=== PATIENT | male | born 1960 | race Caucasian/White ===

== ENCOUNTER 2020-07-28 14:53 | Observation (INO) ==
[2020-07-28] MEDS ORDERED: IOPAMIDOL 100 ML BOTTLE IV ONE (14:54)
[2020-07-28] MEDS ORDERED: IPRATROPIUM/ALBUTEROL 3 ML AMPUL.NEB NEB ONE (15:12)
[2020-07-28] MEDS ORDERED: predniSONE 20 MG TABLET PO ONE (15:12)
--- NOTE | 2020-07-28 16:06 | XRay Report ---
CLINICAL INFORMATION: dyspnea COMPARISON: 07/25/2020 FINDINGS: The heart is moderately enlarged - increased in size from previous exam. Mediastinum is normal. Pulmonary vessels are moderately distended with mild interstitial edema throughout both lungs which is increased. Moderate bibasilar infiltrates and small effusions have developed. IMPRESSION: Moderate CHF - worsening. Moderate bibasilar infiltrates and small effusions - new Interpreted and Authenticated by: Lex Beaver 07/28/20
[2020-07-28] MEDS ORDERED: FUROSEMIDE 20 MG/2 ML VIAL IV ONE ×2 (16:29→19:20)
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
[2020-07-28 16:36] LABS: Basophils # (Auto) 0.07 K/mcL (0.00-0.20); Basophils % (Auto) 1.4 % (0.0-2.0); Eosinophils # (Auto) 0.49 K/mcL (0.00-0.70); Eosinophils % (Auto) 9.7 % (0.0-7.0); Hematocrit 41.6 % (41.0-55.0); Hemoglobin 13.3 g/dL (13.5-16.5); Lymphocytes # (Auto) 1.41 K/mcL (1.50-4.80); Mean Cell Volume 88.5 fL (80.0-100.0); Mean Platelet Volume 10.1 fL (7.4-10.4); Monocytes # (Auto) 0.66 K/mcL (0.10-0.90); Monocytes % (Auto) 13.1 % (1.0-12.0); Neutrophils % (Auto) 47.8 % (38.0-78.0); Platelet Count 187 K/mcL (140-440); Red Cell Distribution Width 15.9 % (11.5-14.5)
[2020-07-28 17:03] LABS: ALT/SGPT 20 U/L (<40); AST/SGOT 24 U/L (<40); Albumin 3.6 gm/dL (3.2-5.2); Albumin/Globulin Ratio 0.9 (1.0-2.3); Alkaline Phosphatase 100 U/L (39-117); Bilirubin,Total 0.5 mg/dL (0.1-1.0); Blood Urea Nitrogen 15 mg/dL (6-20); Calcium 8.1 mg/dL (8.6-10.4); Carbon Dioxide 22 mmol/L (22-30); Chloride 104 mmol/L (96-108); Globulin 3.8 gm/dL (2.2-3.7); Glomerular Filtration Rate 92; Glucose 95 mg/dL (70-105)
[2020-07-28] MEDS ORDERED: hydrALAZINE 20 MG/ML VIAL IV PRN (20:25)
[2020-07-28] MEDS ORDERED: ONDANSETRON 4 MG/2 ML VIAL IV PRN (20:25)
[2020-07-28] MEDS ORDERED: ONDANSETRON 4 MG ODT TABLET SL PRN (20:25)
[2020-07-28] MEDS ORDERED: ACETAMINOPHEN 650 MG/65 ML BAG IV PRN (20:25)
[2020-07-28] MEDS ORDERED: POTASSIUM CHLORIDE 20 MEQ PACKET PO PRN (20:25)
[2020-07-28] MEDS ORDERED: POTASSIUM CHLORIDE 40 MEQ in DEXTROSE 5% IN WATER 500 ML IV PRN (20:25)
[2020-07-28] MEDS ORDERED: MAGNESIUM SULFATE 2 GM/50 ML BAG IV PRN (20:25)
[2020-07-28] MEDS ORDERED: POLYETHYLENE GLYCOL 3350 17 GM PACKET PO PRN (20:25)
[2020-07-28] MEDS ORDERED: BISACODYL 10 MG SUPP.RECT PR PRN (20:25)
[2020-07-28] MEDS ORDERED: MELATONIN 3 MG TABLET PO PRN (20:25)
[2020-07-28] MEDS ORDERED: LEVOFLOXACIN 750 MG/150 ML BAG IV SCH (20:30)
--- NOTE | 2020-07-28 20:33 | Internal Med History&Physical ---
HPI History of Present Illness Patient information: Note initiated : 07/28/20 at 8:27 pm Service Date, if different from initiated Date: [] Patient: Héctor Perera a 59 y/o M admitted on for SHORTNESS OF BREATH. Chief Complaint: Shortness of breath History of present illness: Mr. Perera is a 59 year old M with a history of RA/COPD/CAD/[place] 2011/ who presents with worsening shortness of breath over last 1 day duration along with associated orthopnea/effort intolerance and gradually restricting his activities of daily living. No associated fever or sick contacts. Denies productive sputum but endorses to minimal activity resulting in increasingly labored breathing. He denies weight gain or precipitating events but feels the symptoms may have started after episode of upper respiratory infection back in May. Denies weight loss/night sweats/joint pain/rash/arthralgia/headache photophobia or chest pain. Initial work-up in the ER was consistent with bilateral effusion/CHF. Patient was started on diuretics with resultant improvement in shortness of breath. He also received steroids/bronchodilators. Hospital service was consulted. At the time of my evaluation patient is alert and oriented. He is able to answer most the questions and answers in near full sentences. He remains tachycardic and mid 120. Patient has underlying with arthritis which is well controlled on medical management. Follows up with Dr. 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) Osteoarthritis (Acute) Encounter for long-term (current) use of high-risk medication (Acute) Abnormal immunological finding in serum (Acute) Polyarthralgia (Acute) Sinusitis, acute (Chronic) Screening PSA (prostate specific antigen) (Chronic) Acute bronchitis (Acute) Rheumatoid arthritis (Acute) 3-vessel CAD (Chronic) Scoliosis, unspecified (Chronic) Tinea unguium (Chronic) Encounter for therapeutic drug level monitoring (Chronic) Multiple myeloma not having achieved remission (Chronic) Lytic bone lesions on xray (Chronic) Emphysema, unspecified (Chronic) Arthritis, rheumatoid (Acute) Abscess, dental (Chronic) Tobacco abuse counseling (Chronic) Medical History 3-vessel CAD (Chronic) Abnormal immunological finding in serum (Acute) Abscess, dental (Chronic) Arthritis, rheumatoid (Acute) Elevated SGOT (AST) (Acute) Emphysema, unspecified (Chronic) Encounter for long-term (current) use of high-risk medication (Acute) Encounter for therapeutic drug level monitoring (Chronic) 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) Lytic bone lesions on xray (Chronic) Multiple myeloma not having achieved remission (Chronic) Osteoarthritis (Acute) Polyarthralgia (Acute) Respiratory distress (Acute) Rheumatoid arthritis (Acute) CCP+ Scoliosis, unspecified (Chronic) Screening PSA (prostate specific antigen) (Chronic) Sinusitis, acute (Chronic) Tinea unguium (Chronic) Tobacco abuse counseling (Chronic) Surgical History History of intravascular stent placement (Chronic) 3 stents 2011 Family History Other No pertinent family history Social History marital status: single smoking status: Current every day smoker MEDS/ALLERGIES Home Medications and Allergies Home Medications Medication Instructions Recorded Confirmed Type acetaminophen 300 mg-codeine 30 mg 1 tab PO Q4H PRN #120 tab 02/04/20 07/28/20 Rx tablet meloxicam 15 mg tablet 7.5 mg PO BID #15 tab 05/05/20 07/28/20 Rx etanercept 50 mg/mL (1 mL) 50 mg SUB-Q QWEEK #3.92 ml 05/26/20 07/28/20 Rx subcutaneous pen injector leflunomide 10 mg tablet See Rx Instructions .ROUTE 05/26/20 07/28/20 Rx .COMPLEX #30 tab albuterol sulfate 90 mcg/actuation 2 puff INHALATION Q6H PRN #18 g 07/22/20 07/28/20 Rx aerosol inhaler azithromycin 250 mg tablet See Rx Instructions PO .COMPLEX #6 07/25/20 07/28/20 Rx tab budesonide-formoterol HFA 160 2 puff INHALATION BID #10.2 g 07/25/20 07/28/20 Rx mcg-4.5 mcg/actuation aerosol inhaler methotrexate sodium 2.5 mg PO QDAY 07/28/20 07/28/20 History Allergies Allergy/AdvReac Type Severity Reaction Status Date / Time No Known Drug Allergies Allergy Verified 07/25/20 14:36 EXAM Constitutional Vitals: Temp Pulse Resp BP Pulse Ox 98.3 F 121 H 25 H 153/102 89 L 07/28/20 14:54 07/28/20 20:20 07/28/20 20:20 07/28/20 20:20 07/28/20 20:20 Anxious Head normocephalic Oral cavity moist No ear nose discharge Eye movement symmetrical Neck supple no lymphadenopathy S1-S2 tachycardia, diminished heart sounds Labored breathing/absent breath sounds bilateral bases Nondistended nontender abdomen Lower extremity no cyanosis clubbing or joint swelling Skin no suspicious lesion Psych anxious but no hallucination Neuro normal higher function DATA Data Completed and Pending Labs: Labs from last 24 hours 07/28/20 07/28/20 07/28/20 15:28 15:28 15:28 WBC RBC Hgb Hct MCV MCH MCHC RDW Plt Count MPV Neut % (Auto) Lymph % (Auto) [place] % (Auto) Eos % (Auto) Baso % (Auto) Lymph # (Auto) [place] # (Auto) Eos # (Auto) Baso # (Auto) Absolute Neutrophils D-Dimer 2.16 H Sodium Potassium Chloride Carbon Dioxide Anion Gap BUN Creatinine GFR Calculation Glucose Calcium Total Bilirubin AST ALT Alkaline Phosphatase Troponin T < 0.01 NT-Pro-B Natriuret Pep 2331.0 H Total Protein Albumin Globulin Albumin/Globulin Ratio 07/28/20 07/28/20 15:28 15:28 WBC 5.0 RBC 4.70 Hgb 13.3 L Hct 41.6 MCV 88.5 MCH 28.3 MCHC 32.0 RDW 15.9 H Plt Count 187 MPV 10.1 Neut % (Auto) 47.8 Lymph % (Auto) 28.0 [place] % (Auto) 13.1 H Eos % (Auto) 9.7 H Baso % (Auto) 1.4 Lymph # (Auto) 1.41 L [place] # (Auto) 0.66 Eos # (Auto) 0.49 Baso # (Auto) 0.07 Absolute Neutrophils 2.41 D-Dimer Sodium 136 Potassium 3.9 Chloride 104 Carbon Dioxide 22 Anion Gap 10.0 BUN 15 Creatinine 0.9 GFR Calculation 92 Glucose 95 Calcium 8.1 L Total Bilirubin 0.5 AST 24 ALT 20 Alkaline Phosphatase 100 Troponin T NT-Pro-B Natriuret Pep Total Protein 7.4 Albumin 3.6 Globulin 3.8 H Albumin/Globulin Ratio 0.9 L A/P Narrative A/P Narrative: * Acute decompensated heart failure. Positive systolic. Start aggressive diuresis. Echocardiogram. Optimize CHF management based on echo finding. * Bilateral pleural effusion secondary to CHF. Will likely resolve with aggressive diuresis. However if evidence of leukocytosis/pneumonia will undergo thoracentesis. * History of RA on methotrexate/leflunomide/Enbrel/meloxicam * History of COPD on Symbicort/albuterol * Prophylaxis Heparin Plan * Observation telemetry admit * Aggressive diuresis/echocardiogram/optimize CHF management based on echo findings * Thoracentesis if indicated * PT OT nutrition support Time Spent With Patient Time: Total time spent is greater than 50% in coordination of care (as documented) at patient's floor/unit and/or counseling patient: QUALITY Stroke Symptom Onset Unknown: No
[2020-07-28] MEDS ORDERED: MELOXICAM 7.5 MG PO SCH (21:00)
[2020-07-28] MEDS ORDERED: BUDESONIDE FORMOTEROL INHALATION SCH (21:00)
[2020-07-28 21:23] LABS: Appearance,Urine CLEAR (Clear); Bilirubin,Urine Negative (Negative); Color,Urine COLORLESS; Culture Indicated,Urine No; Glucose,Urine (UA) Negative (Negative); Ketones,Urine Negative (Negative); Leukocyte Esterase,Urine Negative /ug (Negative); Nitrate,Urine Negative (Negative); Protein,Urine Negative (Negative); Specific Gravity,Urine 1.013 (1.000-1.035); Urine Blood Negative (Negative); Urine RBC < 1 /hpf (0-3); Urine Squamous Epithelial Cell 0 /hpf (0-4); Urine WBC 0 /hpf (0-4); Urobilinogen,Urine Negative
[2020-07-28] MEDS: MELOXICAM 7.5 MG TABLET PO SCH (21:37)
[2020-07-28] MEDS: HEPARIN 5,000 UNIT/ML VIAL SQ SCH (21:37)
[2020-07-28] MEDS: LEVOFLOXACIN 750 MG/150 ML BAG IV SCH (21:37)
[2020-07-28] MEDS: ACETAMINOPHEN 325 MG TABLET PO PRN (21:38)
[2020-07-28] MEDS: SENNOSIDES/DOCUSATE SODIUM 1 TAB TABLET PO SCH (21:40)
[2020-07-28] MEDS: BUDESONIDE 160 MCG INH SCH (21:40)
[2020-07-28] MEDS: FORMOTEROL 4.5 MCG INH SCH (21:40)
[2020-07-28] MEDS: DOCUSATE SODIUM 100 MG CAPSULE PO SCH (21:40)
[2020-07-28] MEDS: 0.9 % SODIUM CHLORIDE 10 ML SYRINGE IV SCH (21:41)
[2020-07-29] MEDS: ACETAMINOPHEN 325 MG TABLET PO PRN (03:12)
--- NOTE | 2020-07-29 05:12 | Cat Scan Report ---
CLINICAL INFORMATION: Pain and elevated d-dimer COMPARISON: 05/13/[address] with contrast TECHNIQUE: ml of Isovue-370 were injected intravenously. Using SmartPrep to maximize pulmonary artery opacification, .625mm helical slices were obtained from the lung apices through the lung bases. Following reconstruction, 2.5 mm sagittal, coronal, and axial reformations were processed. The exam was reviewed at mediastinal, lung, and bone windows. The exam was performed using radiation dose optimization techniques including, but not limited to, automated exposure control, adjustment of the mA and/or kV according to patient size and use of iterative reconstruction technique. FINDINGS: Mediastinal windows show the pulmonary arteries are well-opacified with moderate peripheral congestion compatible with CHF. No evidence of pulmonary embolus. Thoracic aorta is nonopacified but normal in diameter. Multiple moderately enlarged lymph nodes in the lower mediastinum and hilum are unchanged from the comparison CT three months prior. The largest is 20 mm in the AP window. The heart is moderately enlarged. Subendocardial fat in the cardiac apex and distal septum is suggestive of nontransmural myocardial infarction. There appear to be stents in the proximal LAD and possibly the mid LAD. Moderately heavy calcific plaque present in the coronary arteries. Small hiatal hernia noted Pulmonary parenchymal windows show moderate centrilobular and periseptal emphysema featuring chronic bronchitis with elevated lung volumes wall thickening/dilatation of the bronchi. Multiple bullae are seen in the lung apices and the paraseptal regions of the remaining lungs. Mild groundglass airspace disease has developed throughout both lungs likely represent a pulmonary edema. Scattered (9-10) small well-circumscribed solid pulmonary nodules were carefully compared to the CT less than three months prior and are unchanged. There are likely granulomas. Moderate bilateral pleural effusions have developed with subsegmental atelectasis in both posterior dependent lower lobes. Bone windows show no osseous abnormality. Images through the superior abdomen show small hiatal hernia. 3.5 cm simple cyst in the lateral segment left hepatic lobe is unchanged. 1 cm simple cyst in the right hepatic lobe is also stable. Visualized kidneys, adrenal glands, spleen and pancreas are normal. IMPRESSION: 1. No evidence of pulmonary embolus. 2. Moderate CHF. Heart is moderately enlarged and there is subendocardial fat and cardiac apex and distal septum suggesting old nontransmural infarct. 3. Moderate bilateral pleural effusions resulting in compressive subsegmental atelectasis in the adjacent posterior lower lobes 4. Scattered small well-circumscribed pulmonary nodules throughout both lungs are unchanged since the most recent chest CT less than three months prior. They're likely benign granulomas. One year follow-up chest CT without contrast in July 2021 to ensure continued stability. 5. Adenopathy in the lower mediastinum - stable. Adenopathy can occur with chronic or intermittent CHF. It is almost certainly benign reactive adenopathy. 6. Small hiatal hernia - stable Interpreted and Authenticated by: Lex Beaver 07/29/20
[2020-07-29] MEDS: 0.9 % SODIUM CHLORIDE 10 ML SYRINGE IV SCH ×3 (06:11→20:22)
[2020-07-29 06:56] LABS: Basophils # (Auto) 0.02 K/mcL (0.00-0.20); Basophils % (Auto) 0.5 % (0.0-2.0); Eosinophils # (Auto) 0.01 K/mcL (0.00-0.70); Eosinophils % (Auto) 0.2 % (0.0-7.0); Hematocrit 44.4 % (41.0-55.0); Hemoglobin 14.2 g/dL (13.5-16.5); Lymphocytes # (Auto) 0.84 K/mcL (1.50-4.80); Lymphocytes % (Auto) 19.9 % (15.0-49.0); Mean Cell Volume 89.2 fL (80.0-100.0); Mean Platelet Volume 10.4 fL (7.4-10.4); Monocytes # (Auto) 0.45 K/mcL (0.10-0.90); Monocytes % (Auto) 10.6 % (1.0-12.0); Neutrophils % (Auto) 68.8 % (38.0-78.0); Platelet Count 218 K/mcL (140-440); RBC 4.98 M/mcL (4.50-5.90); Red Cell Distribution Width 16.1 % (11.5-14.5); WBC 4.2 K/mcL (4.5-11.0)
[2020-07-29 07:30] LABS: ALT/SGPT 20 U/L (<40); AST/SGOT 23 U/L (<40); Albumin 3.8 gm/dL (3.2-5.2); Albumin/Globulin Ratio 0.9 (1.0-2.3); Alkaline Phosphatase 105 U/L (39-117); Bilirubin,Direct < 0.2 mg/dL (<0.3); Bilirubin,Total 0.5 mg/dL (0.1-1.0); Blood Urea Nitrogen 23 mg/dL (6-20); Calcium 8.5 mg/dL (8.6-10.4); Carbon Dioxide 25 mmol/L (22-30); Chloride 99 mmol/L (96-108); Globulin 4.1 gm/dL (2.2-3.7); Glomerular Filtration Rate 81; Glucose 118 mg/dL (70-105); Lactate Dehydrogenase 206 U/L (135-225); Phosphorous 4.1 mg/dL (2.5-4.5); Triglycerides 61 mg/dL (<150); Uric Acid 5.9 mg/dL (2.5-8.0)
[2020-07-29] MEDS: HEPARIN 5,000 UNIT/ML VIAL SQ SCH ×2 (08:10→20:18)
[2020-07-29] MEDS: FUROSEMIDE 40 MG/4 ML VIAL IV SCH ×2 (08:10→15:48)
[2020-07-29] MEDS: MELOXICAM 7.5 MG TABLET PO SCH ×2 (08:10→20:18)
[2020-07-29] MEDS: MULTIVIT,THER IRON,CA,FA & MIN 1 TABLET PO SCH (08:10)
[2020-07-29] MEDS: DOCUSATE SODIUM 100 MG CAPSULE PO SCH ×2 (08:11→20:22)
[2020-07-29] MEDS ORDERED: METHOTREXATE SODIUM 2.5 MG TABLET PO SCH (09:00)
--- NOTE | 2020-07-29 09:05 | Internal Med Progress Note ---
SUBJECTIVE Subjective Patient information: Note initiated : 07/29/20 at 9:02 am Service Date, if different from initiated Date: [] Patient: Héctor Perera 59 y/o M admitted on 07/28/20 for SHORTNESS OF BREATH. Chief Complaint: [] Interval history: Mr. Perera is a 59 year old M with a history of RA/COPD/CAD/[place] 2011/ who presents with worsening shortness of breath over last 1 day duration along with associated orthopnea/effort intolerance and gradually restricting his activities of daily living. No associated fever or sick contacts. Denies productive sputum but endorses to minimal activity resulting in increasingly labored breathing. He denies weight gain or precipitating events but feels the symptoms may have started after episode of upper respiratory infection back in May. Denies weight loss/night sweats/joint pain/rash/arthralgia/headache photophobia or chest pain. Initial work-up in the ER was consistent with bilateral effusion/CHF. Patient was started on diuretics with resultant improvement in shortness of breath. He also received steroids/bronchodilators. Hospital service was consulted. At the time of my evaluation patient is alert and oriented. He is able to answer most the questions and answers in near full sentences. He remains tachycardic and mid 120. Patient has underlying with arthritis which is well controlled on medical management. Follows up with Dr. Moss 07/29-patient doing a lot better. Diuresing well. Orthopnea and dyspnea much improved. However unable to sleep last night. Await echocardiogram. Net -2500 cc fluid balance. Continue diuresis. Optimize CHF management based on echo finding. Start extended-release metoprolol. Constitutional Vitals: Vital Signs Temp Pulse Resp BP Pulse Ox 98.1 F 109 H 18 141/106 97 07/29/20 08:01 07/29/20 08:01 07/29/20 06:01 07/29/20 08:01 07/29/20 08:01 Period Temp Pulse Resp BP Sys/Brown Pulse Ox Last 24 Hr 97.6 F-98.4 F 57-123 10-28 129-169/81-134 86-97 Intake and Output 07/28/20 07/29/20 07/29/20 21:59 05:59 13:59 Intake Total 150 Output Total 2024 400 200 Balance -2024 -250 -200 Weight 101.559 kg alert oriented Minimally labored breathing No anxiety Nondistended abdomen Intake & Output: Intake & Output 07/28/20 07/29/20 07/29/20 21:59 05:59 13:59 Intake Total 150 Output Total 2024 400 200 Balance -2024250 -200 Weight 101.559 kg Intake: IV 150 Output: Void Amount 2024 400 200 Other: Urine Appearance Clear Clear Urine Color Straw Straw Dark Yellow Urine Odor Normal # Voids 1 OBJ DATA Labs CBC & Chem 7: 07/29/20 05:25 07/29/20 05:25 Labs: Abnormal Lab Results 07/29/20 07/29/20 07/28/20 05:25 05:25 15:28 WBC 4.2 L Hgb RDW 16.1 H [place] % (Auto) Eos % (Auto) Lymph # (Auto) 0.84 L D-Dimer 2.16 H BUN 23 H Glucose 118 H Calcium 8.5 L NT-Pro-B Natriuret Pep Globulin 4.1 H Albumin/Globulin Ratio 0.9 L 07/28/20 07/28/20 07/28/20 15:28 15:28 15:28 WBC Hgb 13.3 L RDW 15.9 H [place] % (Auto) 13.1 H Eos % (Auto) 9.7 H Lymph # (Auto) 1.41 L D-Dimer BUN Glucose Calcium 8.1 L NT-Pro-B Natriuret Pep 2331.0 H Globulin 3.8 H Albumin/Globulin Ratio 0.9 L Meds: Medications Acetaminophen (Tylenol) 650 mg PO Q4-6HP PRN; Protocol PRN Reason: Per Pain Protocol/Fever > 101 Last Admin: 07/29/20 03:12 Dose: 650 mg Documented by: Bisacodyl (Dulcolax) 10 mg NM Q2-3DAYS PRN PRN Reason: Constipation Docusate Sodium (Colace) 100 mg PO BID [facility] Last Admin: 07/29/20 08:11 Dose: Not Given Documented by: Furosemide (Lasix) 40 mg IV BIDD [facility] Last Admin: 07/29/20 08:10 Dose: 40 mg Documented by: Heparin Sodium (Porcine) (Heparin) 5,000 unit SQ Q12 [facility] Last Admin: 07/29/20 08:10 Dose: 5,000 unit Documented by: Hydralazine HCl (Apresoline) 10 mg IV Q4-6HP PRN PRN Reason: Hypertension Potassium Chloride 40 meq/ (Dextrose) 520 mls @ 130 mls/hr IV UD PRN PRN Reason: K+ = or < 3.5 Acetaminophen (Ofirmev) 650 mg in 65 mls @ 130 mls/hr IV Q6HP PRN; Protocol PRN Reason: Per Pain Protocol/Fever > 101 Magnesium Sulfate (Magnesium Sulfate) 2 gm in 50 mls @ 50 mls/hr IV UD PRN PRN Reason: MG = or < 1.7 Levofloxacin (Levaquin) 750 mg in 150 mls @ 100 mls/hr IV DAILY [facility]; Protocol Last Infusion: 07/28/20 23:26 Dose: Infused Documented by: Iron Carb/Multivit/Loving/Folic Acid (Multivitamin W/Minerals) 1 tab PO DAILY [facility] Last Admin: 07/29/20 08:10 Dose: 1 tab Documented by: Melatonin (Melatonin 3mg Tablet) 3 mg PO HSP PRN PRN Reason: Insomnia Last Admin: 07/28/20 21:37 Dose: 3 mg Documented by: Meloxicam (Mobic) 7.5 mg PO BID [facility] Last Admin: 07/29/20 08:10 Dose: 7.5 mg Documented by: Ondansetron HCl (Zofran Odt) 4 mg SL Q4-6HP PRN; Protocol PRN Reason: Nausea And Vomiting Ondansetron HCl (Zofran) 4 mg IV Q4-6HP PRN; Protocol PRN Reason: Nausea And Vomiting Etanercept [Enbrel (Sureclick] 50 Mg Pen) 1 dose SUB-Q Th@0900 [facility] Budesonide 160 Mcg - Formoterol 4.5 Mcg [ Symbicort] Inhaler 2 dose INH BID [facility] Last Admin: 07/28/20 21:40 Dose: 2 dose Documented by: Pneumococcal Polyvalent Vaccine (Pneumovax 23) 0.5 ml IM .ONCE ONE Stop: 07/30/20 10:01 Polyethylene Glycol (Miralax) 17 gm PO DAILYP PRN PRN Reason: Constipation Potassium Chloride (Klor-Con) 40 meq PO DAILYP PRN PRN Reason: K+ < 3.5 Senna/Docusate Sodium (Senna Plus Tablet) 1 tab PO HS [facility] Last Admin: 07/28/20 21:40 Dose: Not Given Documented by: Sodium Chloride (Saline Flush) 10 ml IV Q8 [place] Last Admin: 07/29/20 06:11 Dose: Not Given Documented by: A/P Narrative A/P Narrative: * Acute decompensated heart failure. Likely systolic however await echo findings. Responding well to aggressive diuresis with over 2000 cc net negative fluid balance overnight. Start extended-release beta-jorden and optimize CHF management based on echo finding. * Bilateral pleural effusion secondary to CHF. Repeat imaging in 24 hours. No fever or leukocytosis suggestive of infectious etiology. * History of RA on methotrexate/leflunomide/Enbrel/meloxicam, next dose Biologics on * History of COPD on Symbicort/albuterol * Prophylaxis Heparin Plan * Continue aggressive diuresis * Start extended-release beta-jorden * Await echo findings * Thoracentesis if indicated * PT OT nutrition support * Discharge planning Time Spent With Patient Time: Total time spent is greater than 50% in coordination of care (as documented) at patient's floor/unit and/or counseling patient: QUALITY Stroke Symptom Onset Unknown: No
[2020-07-29] MEDS: BUDESONIDE 160 MCG INH SCH ×2 (09:20→20:18)
[2020-07-29] MEDS: FORMOTEROL 4.5 MCG INH SCH ×2 (09:20→20:18)
[2020-07-29] MEDS: METOPROLOL SUCCINATE 25 MG TAB.XL.24H PO SCH (09:37)
[2020-07-29] MEDS: LEVOFLOXACIN 750 MG/150 ML BAG IV SCH (13:55)
[2020-07-29] MEDS: ACETAMINOPHEN W/CODEINE #3 1 TABLET PO PRN ×3 (14:14→23:47)
[2020-07-29] MEDS: SENNOSIDES/DOCUSATE SODIUM 1 TAB TABLET PO SCH (20:22)
[2020-07-30] MEDS: ACETAMINOPHEN W/CODEINE #3 1 TABLET PO PRN ×3 (04:34→13:50)
[2020-07-30 06:05] LABS: Basophils # (Auto) 0.09 K/mcL (0.00-0.20); Basophils % (Auto) 1.7 % (0.0-2.0); Eosinophils # (Auto) 0.29 K/mcL (0.00-0.70); Eosinophils % (Auto) 5.5 % (0.0-7.0); Hematocrit 43.5 % (41.0-55.0); Hemoglobin 13.9 g/dL (13.5-16.5); Lymphocytes # (Auto) 1.44 K/mcL (1.50-4.80); Lymphocytes % (Auto) 27.2 % (15.0-49.0); Mean Cell Volume 89.5 fL (80.0-100.0); Mean Platelet Volume 9.9 fL (7.4-10.4); Monocytes # (Auto) 0.79 K/mcL (0.10-0.90); Monocytes % (Auto) 14.9 % (1.0-12.0); Neutrophils % (Auto) 50.7 % (38.0-78.0); Platelet Count 215 K/mcL (140-440); RBC 4.86 M/mcL (4.50-5.90); Red Cell Distribution Width 16.2 % (11.5-14.5); WBC 5.3 K/mcL (4.5-11.0)
[2020-07-30] MEDS: 0.9 % SODIUM CHLORIDE 10 ML SYRINGE IV SCH ×2 (06:46→13:49)
[2020-07-30] MEDS: FUROSEMIDE 40 MG/4 ML VIAL IV SCH ×2 (07:15→13:50)
[2020-07-30] MEDS: HEPARIN 5,000 UNIT/ML VIAL SQ SCH (07:16)
[2020-07-30] MEDS: MULTIVIT,THER IRON,CA,FA & MIN 1 TABLET PO SCH (07:16)
[2020-07-30] MEDS: METOPROLOL SUCCINATE 25 MG TAB.XL.24H PO SCH (07:16)
[2020-07-30] MEDS: DOCUSATE SODIUM 100 MG CAPSULE PO SCH (07:16)
[2020-07-30 07:57] LABS: ALT/SGPT 20 U/L (<40); AST/SGOT 28 U/L (<40); Albumin 3.7 gm/dL (3.2-5.2); Albumin/Globulin Ratio 0.9 (1.0-2.3); Alkaline Phosphatase 103 U/L (39-117); Bilirubin,Direct < 0.2 mg/dL (<0.3); Bilirubin,Total 0.6 mg/dL (0.1-1.0); Blood Urea Nitrogen 30 mg/dL (6-20); Calcium 8.5 mg/dL (8.6-10.4); Carbon Dioxide 23 mmol/L (22-30); Chloride 97 mmol/L (96-108); Glomerular Filtration Rate 81; Glucose 95 mg/dL (70-105); Lactate Dehydrogenase 234 U/L (135-225); Triglycerides 125 mg/dL (<150); Uric Acid 7.1 mg/dL (2.5-8.0)
--- NOTE | 2020-07-30 08:56 | XRay Report ---
CLINICAL INFORMATION: CHF COMPARISON: 07/28/2020 FINDINGS: Heart has decreased in size and now only mildly enlarged. Mediastinum is unremarkable. Pulmonary vessels have returned to normal in caliber. Interstitial edema has almost totally resolved. Bibasilar airspace disease also nearly completely resolved with only minimal residual. Small bilateral pleural effusions have decreased IMPRESSION: Near complete interval resolution CHF and bibasilar atelectasis or infiltrate Interpreted and Authenticated by: Lex Beaver 07/30/20
[2020-07-30] MEDS ORDERED: MELOXICAM 7.5 MG TABLET PO SCH (09:00)
[2020-07-30] MEDS: LEVOFLOXACIN 750 MG/150 ML BAG IV SCH (09:30)
[2020-07-30] MEDS: FORMOTEROL 4.5 MCG INH SCH (09:35)
[2020-07-30] MEDS: BUDESONIDE 160 MCG INH SCH (09:35)
[2020-07-30] MEDS ORDERED: PNEUMOCOCCAL 23-VAL P-SAC VAC 0.5 ML SYRINGE IM ONE (10:00)
[2020-07-30] MEDS ORDERED: FLU VACC QS2020-21(6MOS UP)/PF 60 MCG/0.5 ML SYRINGE IM ONE (10:00)
--- NOTE | 2020-07-30 11:19 | Discharge Summary ---
Discharge Provider Provider Patient information: Note initiated : 07/30/20 at 11:13 am Service Date, if different from initiated Date: [] Patient: Héctor Perera 59 y/o M admitted on 07/28/20 for SHORTNESS OF BREATH. Discharge diagnosis * Acute decompensated systolic heart failure. EF 40%. Responding well to aggressive diuresis with over 4000 cc net negative fluid balance overnight. Continue low-dose ADRIAN inhibitor/extended-release beta-jorden/daily diuretics. Interval improvement in CHF noted * Bilateral pleural effusion secondary to CHF. Interval improvement noted. Secondary to CHF * History of RA on methotrexate/leflunomide/Enbrel/meloxicam, follow-up with primary care physician * History of COPD on Symbicort/albuterol Brief hospital course Mr. Perera is a 59 year old M with a history of RA/COPD/CAD/[place] 2011/ who presents with worsening shortness of breath over last 1 day duration along with associated orthopnea/effort intolerance and gradually restricting his activities of daily living. No associated fever or sick contacts. Denies productive sputum but endorses to minimal activity resulting in increasingly labored breathing. He denies weight gain or precipitating events but feels the symptoms may have started after episode of upper respiratory infection back in May. Denies weight loss/night sweats/joint pain/rash/arthralgia/headache photophobia or chest pain. Initial work-up in the ER was consistent with bilateral effusion/CHF. Patient was started on diuretics with resultant improvement in shortness of breath. He also received steroids/bronchodilators. Hospital service was consulted. At the time of my evaluation patient is alert and oriented. He is able to answer most the questions and answers in near full sentences. He remains tachycardic and mid 120. Patient has underlying with arthritis which is well controlled on medical management. Follows up with Dr. Moss 07/29-patient doing a lot better. Diuresing well. Orthopnea and dyspnea much improved. However unable to sleep last night. Await echocardiogram. Net -2500 cc fluid balance. Continue diuresis. Optimize CHF management based on echo finding. Start extended-release metoprolol. 07/30-echocardiogram 40% EF systolic competent. Recommend outpatient cardiology follow-up. Continue ADRIAN inhibitor/beta-jorden at this time along with diuretics. Clinically much improved following net -4000 cc fluid balance. O rthopnea resolved. Now on room air. Tachypnea resolved. Systolics at goal. Requesting discharge. Complaint of overnight back discomfort due to uncomfortable bed and requesting to go home. Advised to follow-up with [place] cardiology and outpatient PCP for continued optimization of heart failure and also evaluation of etiology that may include PCI/further cardiac work-up. Date of admission: 07/28/20 20:43 Discharge date: 07/30/20 Primary care physician: Topher Andrews MD Consults: 07/28/20 Consult to Physician [CONS] Stat Comment: Consulting Provider: Sohail Riley Reason For Exam: Physician to Consult Discharge Meds Discharge Medications Home Medications acetaminophen 300 mg-codeine 30 mg tablet 1 tab PO Q4H PRN #120 tab 02/04/20 [Rx Confirmed 07/28/20 Last Taken 07/28/20] etanercept 50 mg/mL (1 mL) subcutaneous pen injector 50 mg SUB-Q QWEEK #3.92 ml 05/26/20 [Rx Confirmed 07/28/20 Last Taken 07/24/20] leflunomide 10 mg tablet See Rx Instructions .ROUTE .COMPLEX #30 tab 05/26/20 [Rx Confirmed 07/28/20 Last Taken 07/27/20] albuterol sulfate 90 mcg/actuation aerosol inhaler 2 puff INHALATION Q6H PRN #18 g 07/22/20 [Rx Confirmed 07/28/20 Last Taken 07/28/20] budesonide-formoterol HFA 160 mcg-4.5 mcg/actuation aerosol inhaler 2 puff INHALATION BID #10.2 g 07/25/20 [Rx Confirmed 07/28/20 Last Taken 07/27/20] meloxicam 7.5 mg PO QDAY 07/28/20 [History Confirmed 07/28/20 Last Taken 07/27/20] COURSE Hospital Course Hospital course: . Discharge diagnosis: Decompensated systolic heart failure Time Spent with Patient Time attestation: Total time spent providing and/or coordinating discharge services: EXAM Constitutional Vitals: Temp Pulse Resp BP Pulse Ox 97.3 F 40 L 27 H 112/72 94 07/30/20 08:01 07/30/20 09:26 07/30/20 09:26 07/30/20 08:01 07/30/20 09:26 Discharge Data Data Completed and Pending Labs on day of discharge: Labs from last 24 hours 07/30/20 07/30/20 05:13 05:13 WBC 5.3 RBC 4.86 Hgb 13.9 Hct 43.5 MCV 89.5 MCH 28.6 MCHC 32.0 RDW 16.2 H Plt Count 215 MPV 9.9 Neut % (Auto) 50.7 Lymph % (Auto) 27.2 [place] % (Auto) 14.9 H Eos % (Auto) 5.5 Baso % (Auto) 1.7 Lymph # (Auto) 1.44 L [place] # (Auto) 0.79 Eos # (Auto) 0.29 Baso # (Auto) 0.09 Absolute Neutrophils 2.68 Sodium 136 Potassium 4.5 Chloride 97 Carbon Dioxide 23 Anion Gap 16.0 BUN 30 H Creatinine 1.0 GFR Calculation 81 Glucose 95 Uric Acid 7.1 Calcium 8.5 L Phosphorus 4.0 Magnesium 2.3 Total Bilirubin 0.6 Direct Bilirubin < 0.2 GGT 17 AST 28 ALT 20 Alkaline Phosphatase 103 Lactate Dehydrogenase 234 H Total Protein 7.7 Albumin 3.7 Globulin 4.0 H Albumin/Globulin Ratio 0.9 L Triglycerides 125 Discharge Plan Patient/Caregiver Discharge Instructions Activity: increase activity as tolerated Diet: Regular Diet Instructions: Metoprolol (By mouth), Heart Failure (GEN), How to Stop Smoking (GEN), Cigarette Smoking and Your Health (GEN), Using Oxygen at Home (GEN) Activity Restrictions/Additional Instructions: Continue Toprol/metoprolol/Lasix advised Daily weight intake extra Lasix for 24 to 48 hours if weight gain is over 4 pounds above baseline or increasing shortness of breath Follow-up with cardiology and [facility] Follow-up PCP in 1 to 2 weeks A referral has been sent to [facility], they will contact you to schedule an appointment after reviewing your hospital visit. Call if you have any questions. This discharge packet is provided to you to help keep you informed about your care. We want to ensure you get everything you need when you go home. You will also be receiving a call from us in a few days to follow up with you and see how you are doing since your discharge. This gives us a chance to listen to any concerns you maybe experiencing since you were discharged or any additional needs you may have, as well as providing us feedback on your care experience. We strive to always provide excellent care and thank you for your feedback and for choosing [facility]. Prescriptions: No Action acetaminophen-codeine 300-30 mg tablet 1 tab PO Q4H PRN (Reason: pain) Qty: 120 RF: 5 Enbrel SureClick 50 mg/mL (1 mL) pen injector 50 mg SUB-Q QWEEK Qty: 3.92 RF: 2 leflunomide 10 mg tablet See Rx Instructions .ROUTE .COMPLEX Qty: 30 RF: 1 albuterol sulfate [ProAir HFA] 90 mcg/actuation HFA aerosol inhaler 2 puff INHALATION Q6H PRN (Reason: shortness of breath or wheezing) Qty: 18 RF: 0 budesonide-formoterol [Symbicort] 160-4.5 mcg/actuation HFA aerosol inhaler 2 puff INHALATION BID Qty: 10.2 RF: 5 meloxicam 7.5 mg Tablet 7.5 mg PO QDAY RF: 0 Follow Up Plan Follow up with: Topher Andrews MD [Primary Care Provider] - 08/04/20 10:30 am Patient Disposition: Home, Self-Care Prognosis: Fair Rehab Potential: Fair I certify that the patient requires SNF services: No Overall status at discharge: patient is progressing back to baseline Discharge Orders: Discharge Order (Routine); Ordered 07/30/20 Ordered By: Sohail Riley
[2020-07-31] MEDS ORDERED: ETANERCEPT 50 MG SUB-Q SCH (09:00)
== END 2020-07-30 15:50 | disposition home or self-care (01) ==
LOC: ICU 14:53 → ED 14:53 → ICU 20:43
PROVIDERS: ADMIT Internal Medicine; ATTEND Internal Medicine

== ENCOUNTER 2024-08-13 11:15 | Inpatient (IN) ==
[2024-08-13] MEDS ORDERED: IOPAMIDOL 100 ML BOTTLE IV ONE (11:16)
[2024-08-13] MEDS: IPRATROPIUM/ALBUTEROL 3 ML AMPUL.NEB NEB ONE (11:49)
[2024-08-13] MEDS: methylPREDNISolone SOD SUCC 125 MG/2 ML VIAL IV ONE (11:53)
[2024-08-13] MEDS: AZITHROMYCIN 500 MG in 0.9 % SODIUM CHLORIDE 250 ML IV ONE (12:21)
[2024-08-13] MEDS: cefTRIAXone 1 GM VIAL IV ONE (12:21)
[2024-08-13 12:39] LABS: ALT/SGPT 40 U/L (<40); AST/SGOT 73 U/L (<40); Albumin 3.5 gm/dL (3.2-5.2); Albumin/Globulin Ratio 1.3 (1.0-2.3); Alkaline Phosphatase 67 U/L (39-117); Bilirubin,Total 0.6 mg/dL (0.1-1.0); Blood Urea Nitrogen 28 mg/dL (8-23); Calcium 7.9 mg/dL (8.6-10.4); Carbon Dioxide 24 mmol/L (22-30); Chloride 100 mmol/L (96-108); Globulin 2.6 gm/dL (2.2-3.7); Glomerular Filtration Rate 89; Glucose 174 mg/dL (70-105); Potassium 3.7 mmol/L (3.3-5.1); Sodium 137 mmol/L (133-145)
[2024-08-13 13:00] LABS: Basophils # (Auto) 0.01 K/mcL (0.00-0.30); Basophils % (Auto) 0.3 % (0.0-2.0); Eosinophils # (Auto) 0.02 K/mcL (0.00-0.70); Eosinophils % (Auto) 0.6 % (0.0-7.0); Hemoglobin 14.4 g/dL (13.7-17.5); Lymphocytes # (Auto) 0.47 K/mcL (1.50-4.80); Lymphocytes % (Auto) 13.8 % (15.5-49.0); Mean Cell Volume 93.7 fL (80.0-100.0); Mean Corpuscular HGB Conc 33.5 g/dL (31.0-36.0); Mean Platelet Volume 9.7 fL (8.8-12.5); Monocytes % (Auto) 2.9 % (1.0-12.0); Neutrophils % (Auto) 81.8 % (38.0-78.0); Platelet Count 102 K/mcL (140-440); RBC 4.59 M/mcL (4.63-6.08); Red Cell Distribution Width 13.8 % (11.5-14.5); WBC 3.4 K/mcL (4.5-11.0)
[2024-08-13 15:22] LABS: C-Reactive Protein 0.36 mg/dL (0.03-0.80)
[2024-08-13] MEDS ORDERED: DEXTROSE 50% 50 ML VIAL IV PRN (15:36)
[2024-08-13] MEDS ORDERED: DEXTROSE 31 GM ORAL.SUSP PO PRN (15:36)
[2024-08-13 15:53] LABS: Appearance,Urine CLEAR (Clear); Bilirubin,Urine Negative (Negative); Color,Urine YELLOW; Glucose,Urine (UA) 50 mg/dL (Negative); Ketones,Urine Negative (Negative); Leukocyte Esterase,Urine Negative /uL (Negative); Nitrate,Urine Negative (Negative); Protein,Urine 100 mg/dL (Negative); Specific Gravity,Urine 1.047 (1.000-1.035); Urine Blood 0.03 mg/dL (Negative); Urine Hyaline Cast 1 /lph (0-2); Urine RBC 1 /hpf (0-3); Urine Squamous Epithelial Cell 0 /hpf (0-4); Urine WBC 1 /hpf (0-4); Urobilinogen,Urine Negative
[2024-08-13] MEDS: FUROSEMIDE 40 MG/4 ML VIAL IV ONE (16:02)
[2024-08-13 16:14] LABS: Amphetamine Screen,Urine None detected; Barbiturate Screen,Urine None detected; Benzodiazepines Screen,Urine None detected; Cannabinoid Screen,Urine None detected; Cocaine Screen,Urine None detected; Fentanyl, Urine Screen None Detected; Opiate Screen,Urine None detected; Oxycodone, Urine Screen Suspect Positive; Phencyclidine Screen,Urine None detected
[2024-08-13] MEDS: INSULIN REGULAR, HUMAN 1 UNIT/0.01 ML UNIT IV ONE (16:24)
[2024-08-13] MEDS ORDERED: ONDANSETRON 4 MG/2 ML VIAL IV PRN (17:27)
[2024-08-13] MEDS: INSULIN LISPRO 1 UNIT/0.01 ML UNIT SQ SCH (17:50)
[2024-08-13] MEDS: POTASSIUM CHLORIDE 20 MEQ TABLET PO ONE (17:50)
[2024-08-13] MEDS: IPRATROPIUM/ALBUTEROL 3 ML AMPUL.NEB NEB SCH (19:12)
[2024-08-13] MEDS: DOXYCYCLINE HYCLATE 100 MG TABLET.ORL PO SCH (22:05)
[2024-08-13] MEDS: hydrOXYzine 25 MG TABLET PO PRN (22:05)
[2024-08-13] MEDS: HEPARIN 5,000 UNIT/ML VIAL SQ SCH (22:06)
[2024-08-14] MEDS: 0.9 % SODIUM CHLORIDE 10 ML SYRINGE IV SCH (01:25)
[2024-08-14] MEDS: OSELTAMIVIR PHOSPHATE 75 MG CAPSULE PO SCH (01:25)
[2024-08-14] MEDS: OSELTAMIVIR PHOSPHATE 75 MG CAPSULE PO ONE (01:26)
[2024-08-14 06:21] LABS: ALT/SGPT 35 U/L (<40); AST/SGOT 53 U/L (<40); Albumin 3.5 gm/dL (3.2-5.2); Albumin/Globulin Ratio 1.3 (1.0-2.3); Alkaline Phosphatase 63 U/L (39-117); Bilirubin,Total 0.5 mg/dL (0.1-1.0); Blood Urea Nitrogen 29 mg/dL (8-23); C-Reactive Protein 0.34 mg/dL (0.03-0.80); Calcium 8.3 mg/dL (8.6-10.4); Carbon Dioxide 22 mmol/L (22-30); Chloride 102 mmol/L (96-108); Globulin 2.7 gm/dL (2.2-3.7); Glomerular Filtration Rate 94; Glucose 173 mg/dL (70-105); Potassium 3.8 mmol/L (3.3-5.1); Sodium 139 mmol/L (133-145)
[2024-08-14 07:05] LABS: Basophils # (Auto) 0.01 K/mcL (0.00-0.30); Basophils % (Auto) 0.2 % (0.0-2.0); Eosinophils # (Auto) 0 K/mcL (0.00-0.70); Eosinophils % (Auto) 0 % (0.0-7.0); Hematocrit 41.4 % (40.1-51.0); Hemoglobin 13.9 g/dL (13.7-17.5); Lymphocytes # (Auto) 0.55 K/mcL (1.50-4.80); Lymphocytes % (Auto) 13.3 % (15.5-49.0); Mean Cell Volume 94.1 fL (80.0-100.0); Mean Corpuscular HGB Conc 33.6 g/dL (31.0-36.0); Mean Platelet Volume 10.1 fL (8.8-12.5); Monocytes # (Auto) 0.41 K/mcL (0.10-0.90); Monocytes % (Auto) 9.9 % (1.0-12.0); Neutrophils % (Auto) 76.4 % (38.0-78.0); Platelet Count 121 K/mcL (140-440); Red Cell Distribution Width 13.5 % (11.5-14.5); WBC 4.2 K/mcL (4.5-11.0)
[2024-08-14] MEDS: methylPREDNISolone SOD SUCC 125 MG/2 ML VIAL IV SCH (08:39)
[2024-08-14] MEDS: cefTRIAXone 2 GM in DEXTROSE 5% IN WATER 50 ML IV SCH (08:40)
[2024-08-14] MEDS ORDERED: methylPREDNISolone SOD SUCC 125 MG/2 ML VIAL IV SCH ×3 (09:00)
[2024-08-14] MEDS ORDERED: cefTRIAXone 1 GM VIAL IV SCH ×2 (09:00)
[2024-08-14] MEDS: MAGNESIUM SULFATE 2 GM/50 ML BAG IV SCH (09:13)
[2024-08-14] MEDS: MAGNESIUM SULFATE 8.12 MEQ/2 ML VIAL IV ONE (09:49)
[2024-08-14] MEDS: oxyCODONE/APAP 10/325MG TABLET PO PRN (17:29)
[2024-08-14] MEDS: DOXYCYCLINE 100 MG in DEXTROSE 5% IN WATER 100 ML IV SCH (20:38)
[2024-08-14] MEDS: traZODone HCL 150 MG TABLET PO SCH (20:39)
[2024-08-14] MEDS: MONTELUKAST 10 MG TABLET PO SCH (20:39)
[2024-08-15 07:02] LABS: Basophils # (Auto) 0.01 K/mcL (0.00-0.30); Basophils % (Auto) 0.2 % (0.0-2.0); Eosinophils # (Auto) 0.01 K/mcL (0.00-0.70); Eosinophils % (Auto) 0.2 % (0.0-7.0); Hematocrit 40.2 % (40.1-51.0); Hemoglobin 13.3 g/dL (13.7-17.5); Lymphocytes # (Auto) 0.81 K/mcL (1.50-4.80); Mean Cell Volume 94.8 fL (80.0-100.0); Mean Corpuscular HGB Conc 33.1 g/dL (31.0-36.0); Mean Platelet Volume 10.6 fL (8.8-12.5); Monocytes # (Auto) 0.37 K/mcL (0.10-0.90); Monocytes % (Auto) 6.9 % (1.0-12.0); Neutrophils % (Auto) 77.3 % (38.0-78.0); Platelet Count 140 K/mcL (140-440); RBC 4.24 M/mcL (4.63-6.08); Red Cell Distribution Width 13.7 % (11.5-14.5); WBC 5.4 K/mcL (4.5-11.0)
[2024-08-15 07:32] LABS: ALT/SGPT 32 U/L (<40); AST/SGOT 37 U/L (<40); Albumin 3.4 gm/dL (3.2-5.2); Albumin/Globulin Ratio 1.3 (1.0-2.3); Alkaline Phosphatase 56 U/L (39-117); Bilirubin,Total 0.5 mg/dL (0.1-1.0); Blood Urea Nitrogen 32 mg/dL (8-23); C-Reactive Protein < 0.30 mg/dL (0.03-0.80); Calcium 8.3 mg/dL (8.6-10.4); Carbon Dioxide 24 mmol/L (22-30); Chloride 102 mmol/L (96-108); Globulin 2.7 gm/dL (2.2-3.7); Glomerular Filtration Rate 99; Glucose 138 mg/dL (70-105); Potassium 3.8 mmol/L (3.3-5.1); Sodium 139 mmol/L (133-145)
[2024-08-15] MEDS: oxyCODONE/APAP 10/325MG TABLET PO PRN (08:21)
[2024-08-15] MEDS: ASPIRIN 81 MG TAB.CHEW PO SCH (08:21)
[2024-08-15] MEDS: ATORVASTATIN 40 MG TABLET PO SCH (08:22)
[2024-08-15] MEDS: METOPROLOL SUCCINATE 50 MG TAB.XL.24H PO SCH (08:55)
[2024-08-15] MEDS: FUROSEMIDE 40 MG/4 ML VIAL IV ONE (12:15)
[2024-08-15] MEDS: INSULIN GLARGINE, HUMAN 1 UNIT/0.01 ML SQ SCH (20:59)
[2024-08-15] MEDS: CYCLOBENZAPRINE 10 MG TABLET PO ONE (23:52)
[2024-08-16 06:58] LABS: C-Reactive Protein < 0.30 mg/dL (0.03-0.80)
[2024-08-16 06:59] LABS: ALT/SGPT 52 U/L (<40); AST/SGOT 46 U/L (<40); Albumin 3.7 gm/dL (3.2-5.2); Albumin/Globulin Ratio 1.3 (1.0-2.3); Alkaline Phosphatase 59 U/L (39-117); Bilirubin,Total 0.8 mg/dL (0.1-1.0); Blood Urea Nitrogen 39 mg/dL (8-23); Calcium 8.8 mg/dL (8.6-10.4); Carbon Dioxide 25 mmol/L (22-30); Chloride 101 mmol/L (96-108); Globulin 2.9 gm/dL (2.2-3.7); Glomerular Filtration Rate 89; Glucose 138 mg/dL (70-105); Potassium 4.3 mmol/L (3.3-5.1); Sodium 140 mmol/L (133-145)
[2024-08-16 07:04] LABS: Basophils # (Auto) 0.01 K/mcL (0.00-0.30); Basophils % (Auto) 0.1 % (0.0-2.0); Eosinophils # (Auto) 0.01 K/mcL (0.00-0.70); Eosinophils % (Auto) 0.1 % (0.0-7.0); Hematocrit 43.1 % (40.1-51.0); Hemoglobin 14.3 g/dL (13.7-17.5); Lymphocytes # (Auto) 0.84 K/mcL (1.50-4.80); Lymphocytes % (Auto) 12.2 % (15.5-49.0); Mean Cell Volume 95.4 fL (80.0-100.0); Mean Corpuscular HGB Conc 33.2 g/dL (31.0-36.0); Mean Platelet Volume 10.1 fL (8.8-12.5); Monocytes # (Auto) 0.54 K/mcL (0.10-0.90); Monocytes % (Auto) 7.9 % (1.0-12.0); Neutrophils % (Auto) 79.1 % (38.0-78.0); Platelet Count 176 K/mcL (140-440); RBC 4.52 M/mcL (4.63-6.08); Red Cell Distribution Width 13.4 % (11.5-14.5); WBC 6.9 K/mcL (4.5-11.0)
[2024-08-16] MEDS: POLYETHYLENE GLYCOL 3350 17 GM PACKET PO PRN (09:36)
[2024-08-16] MEDS: FUROSEMIDE 40 MG/4 ML VIAL IV ONE (14:51)
[2024-08-16] MEDS: IPRATROPIUM/ALBUTEROL 3 ML AMPUL.NEB NEB SCH ×2 (15:19→19:19)
[2024-08-16] MEDS: predniSONE 20 MG TABLET PO SCH (16:08)
[2024-08-17 05:56] LABS: Basophils # (Auto) 0.01 K/mcL (0.00-0.30); Basophils % (Auto) 0.1 % (0.0-2.0); Eosinophils # (Auto) 0.02 K/mcL (0.00-0.70); Eosinophils % (Auto) 0.2 % (0.0-7.0); Hematocrit 42.3 % (40.1-51.0); Hemoglobin 14.2 g/dL (13.7-17.5); Lymphocytes # (Auto) 1.01 K/mcL (1.50-4.80); Lymphocytes % (Auto) 12.3 % (15.5-49.0); Mean Cell Volume 94.2 fL (80.0-100.0); Mean Corpuscular HGB Conc 33.6 g/dL (31.0-36.0); Mean Platelet Volume 10.1 fL (8.8-12.5); Monocytes # (Auto) 0.65 K/mcL (0.10-0.90); Monocytes % (Auto) 7.9 % (1.0-12.0); Neutrophils % (Auto) 78.8 % (38.0-78.0); Platelet Count 201 K/mcL (140-440); RBC 4.49 M/mcL (4.63-6.08); Red Cell Distribution Width 13.4 % (11.5-14.5); WBC 8.2 K/mcL (4.5-11.0)
[2024-08-17 06:38] LABS: C-Reactive Protein < 0.30 mg/dL (0.03-0.80)
[2024-08-17 06:39] LABS: ALT/SGPT 57 U/L (<40); AST/SGOT 39 U/L (<40); Albumin 3.7 gm/dL (3.2-5.2); Albumin/Globulin Ratio 1.3 (1.0-2.3); Alkaline Phosphatase 58 U/L (39-117); Bilirubin,Total 0.9 mg/dL (0.1-1.0); Blood Urea Nitrogen 48 mg/dL (8-23); Calcium 8.5 mg/dL (8.6-10.4); Carbon Dioxide 24 mmol/L (22-30); Chloride 99 mmol/L (96-108); Globulin 2.8 gm/dL (2.2-3.7); Glomerular Filtration Rate 89; Glucose 142 mg/dL (70-105); Potassium 4.1 mmol/L (3.3-5.1); Sodium 138 mmol/L (133-145)
[2024-08-17] MEDS: LEVOFLOXACIN 750 MG/150 ML BAG IV SCH (11:46)
[2024-08-17] MEDS: BUDESONIDE 0.5 MG/2 ML AMPUL.NEB NEB SCH (18:51)
[2024-08-17] MEDS: IPRATROPIUM/ALBUTEROL 3 ML AMPUL.NEB NEB PRN (18:51)
[2024-08-17] MEDS: MONTELUKAST 10 MG TABLET PO SCH (21:04)
[2024-08-18 06:58] LABS: ALT/SGPT 63 U/L (<40); AST/SGOT 44 U/L (<40); Albumin/Globulin Ratio 1.3 (1.0-2.3); Alkaline Phosphatase 66 U/L (39-117); Bilirubin,Direct 0.4 mg/dL (<0.3); Bilirubin,Total 1.1 mg/dL (0.1-1.0); Blood Urea Nitrogen 40 mg/dL (8-23); Carbon Dioxide 22 mmol/L (22-30); Chloride 98 mmol/L (96-108); Globulin 3.1 gm/dL (2.2-3.7); Glomerular Filtration Rate 79; Glucose 107 mg/dL (70-105); Lactate Dehydrogenase 441 U/L (135-225); Phosphorous 4.7 mg/dL (2.5-4.5); Potassium 4.2 mmol/L (3.3-5.1); Sodium 138 mmol/L (133-145); Triglycerides 232 mg/dL (<150)
[2024-08-18] MEDS: LOSARTAN 25 MG TABLET PO SCH (09:19)
[2024-08-18] MEDS: METOPROLOL SUCCINATE 50 MG TAB.XL.24H PO SCH (09:19)
[2024-08-18] MEDS: SENNOSIDES 1 TABLET PO PRN (21:24)
[2024-08-18] MEDS: traZODone HCL 50 MG TABLET PO PRN (21:24)
[2024-08-18] MEDS: ACETAMINOPHEN 325 MG TABLET PO PRN (21:49)
[2024-08-19 06:42] LABS: ALT/SGPT 57 U/L (<40); AST/SGOT 44 U/L (<40); Albumin 3.6 gm/dL (3.2-5.2); Albumin/Globulin Ratio 1.3 (1.0-2.3); Alkaline Phosphatase 66 U/L (39-117); Bilirubin,Direct 0.5 mg/dL (<0.3); Bilirubin,Total 1.2 mg/dL (0.1-1.0); Blood Urea Nitrogen 37 mg/dL (8-23); Calcium 8.6 mg/dL (8.6-10.4); Carbon Dioxide 22 mmol/L (22-30); Chloride 99 mmol/L (96-108); Globulin 2.7 gm/dL (2.2-3.7); Glomerular Filtration Rate 89; Glucose 101 mg/dL (70-105); Lactate Dehydrogenase 555 U/L (135-225); Phosphorous 4.4 mg/dL (2.5-4.5); Potassium 3.6 mmol/L (3.3-5.1); Sodium 135 mmol/L (133-145); Triglycerides 173 mg/dL (<150); Uric Acid 6.8 mg/dL (2.5-8.0)
[2024-08-19] MEDS: SPIRONOLACTONE 25 MG TABLET PO SCH (09:22)
[2024-08-19] MEDS: METOPROLOL SUCCINATE 50 MG TAB.XL.24H PO SCH (09:22)
[2024-08-20 05:59] LABS: ALT/SGPT 43 U/L (<40); AST/SGOT 30 U/L (<40); Albumin 3.5 gm/dL (3.2-5.2); Albumin/Globulin Ratio 1.4 (1.0-2.3); Alkaline Phosphatase 59 U/L (39-117); Bilirubin,Direct 0.4 mg/dL (<0.3); Blood Urea Nitrogen 36 mg/dL (8-23); Calcium 8.6 mg/dL (8.6-10.4); Carbon Dioxide 25 mmol/L (22-30); Chloride 100 mmol/L (96-108); Globulin 2.5 gm/dL (2.2-3.7); Glomerular Filtration Rate 89; Glucose 114 mg/dL (70-105); Lactate Dehydrogenase 306 U/L (135-225); Phosphorous 4.3 mg/dL (2.5-4.5); Potassium 3.8 mmol/L (3.3-5.1); Sodium 137 mmol/L (133-145); Triglycerides 148 mg/dL (<150); Uric Acid 6.8 mg/dL (2.5-8.0)
[2024-08-20 12:44] VITALS: TEMP 97.1; O2SAT 94
== END 2024-08-20 12:00 | disposition home or self-care (01) | DRG 189 ==
LOC: ED 11:15 → MEDSUR 17:20 → ICU 22:34
PROVIDERS: ADMIT Student in an Organized Health Care Education/Training Program; ATTEND Internal Medicine